=== PATIENT | male | born 1965 | race Caucasian/White ===

== ENCOUNTER 2016-03-18 16:57 | Inpatient (IN) | payer BC, OTHER ==
[2016-03-18] VITALS (7 sets, daily range): BP systolic 103–115; BP diastolic 66–74; PULSE 60–74; RESP 16–18; TEMP 97.9–98.9; O2SAT 98–100
[~2016-03-18] VITALS: Ht 172.7 cm; Wt 85.0 kg
[2016-03-18] MEDS ORDERED: SODIUM CHLOR 0.9% 1000 ML INJ 1,000 ML IV SCH (18:33)
--- NOTE | 2016-03-18 18:43 | PD ---
HPI Chief Complaint: Abnormal Results Time Seen by Provider: 18:17 Travel History International Travel<30 days: No Contact w/Intl Traveler<30days: No Traveled to known affect area: No History of Present Illness HPI 81-year-old male complains generalized malaise and weakness, dark loose stool and shortness of breath. Patient states that the symptoms started a week ago. Patient denies any headache. Patient denies any chest pain. Patient denies any coughing congestion. Patient denies abdominal pain. Patient denies any dysuria or frequency. Patient denies any fever chills. Patient denies any back pain. Patient does not have a local family physician. Patient was seen at local walk-in clinic 2 days ago and had blood tests done. Results Back today which shows hemoglobin of 5.7 hematocrit 17.8. TSH above 150. Patient was advised to go to ED for evaluation. Patient denies any past medical problem. Patient is not on any routine medication. Patient denies any routine intake of aspirin or NSAIDs. Patient denies any history GI bleed. Patient never had upper GI studies or colonoscopy. PFSH Past Medical History Medical History: Denies Significant Hx Diminished Hearing: No Tetanus Vaccination: Unknown Past Surgical History Other Surgery: Yes (ANKLE AND HAND SX) Social History Alcohol Use: Yes (SOC) Tobacco Use: No Substance Use: No Allergies-Medications (Allergen,Severity, Reaction): Coded Allergies: No Known Allergies (Unverified , 03/18/16) Reported Meds & Prescriptions Reported Meds & Active Scripts Active No Active Prescriptions or Reported Medications Review of Systems General / Constitutional: No: Fever Eyes: No: Visual changes HENT: No: Headaches Cardiovascular: No: Chest Pain or Discomfort Respiratory: No: Shortness of Breath Gastrointestinal: Positive: Hematochezia, No: Abdominal Pain Genitourinary: No: Dysuria Musculoskeletal: No: Pain Skin: No Rash Neurologic: No: Weakness Psychiatric: No: Depression Endocrine: No: Polydipsia Hematologic/Lymphatic: No: Easy Bruising Physical Exam Narrative GENERAL: Well-nourished, well-developed patient. SKIN: Warm and dry. Patient is pale HEAD: Normocephalic. EYES: No scleral icterus. No injection or drainage. NECK: Supple, trachea midline. No JVD or lymphadenopathy. CARDIOVASCULAR: Regular rate and rhythm without murmurs, gallops, or rubs. RESPIRATORY: Breath sounds equal bilaterally. No accessory muscle use. GASTROINTESTINAL: Abdomen soft, non-tender, nondistended. Rectal exam Hemoccult positive. MUSCULOSKELETAL: No cyanosis, or edema. BACK: Nontender without obvious deformity. No CVA tenderness. Neurologic exam normal. Data Data Last Documented VS Vital Signs Date Time Temp Pulse Resp B/P Pulse Ox O2 Delivery O2 Flow Rate FiO2 03/18/16 18:16 16 100 Room Air 03/18/16 17:21 98.9 72 115/73 Orders Electrocardiogram (03/18/16 18:26) Complete Blood Count With Diff (03/18/16 18:26) Comprehensive Metabolic Panel (03/18/16 18:26) Prothrombin Time / Inr (Pt) (03/18/16 18:26) Act Partial Throm Time (Ptt) (03/18/16 18:26) Thyroid Stimulating Hormone (03/18/16 18:26) Chest, Single Ap (03/18/16 18:26) Iv Access Insert/Monitor (03/18/16 18:26) Ecg Monitoring (03/18/16 18:26) Oximetry (03/18/16 18:26) Type And Screen (03/18/16 18:26) Ct Abd/Pel W Iv Contrast(Rout) (03/18/16 18:26) Urinalysis - C+S If Indicated (03/18/16 18:33) Red Blood Cells (Rbc) (03/18/16 18:33) Blood Product Administration .UPON TRANSFUSION (03/18/16 18:33) Ondansetron Inj (Zofran Inj) (03/18/16 18:45) Sodium Chlor 0.9% 1000 Ml Inj (Ns 1000 M (03/18/16 18:33) Protonix Bolus 80 Mg X 1 (03/18/16 18:45) Protonix Drip 8ommg/Hr (03/18/16 18:45) Furosemide Inj (Lasix Inj) (03/18/16 18:45) MDM Medical Decision Making Medical Screen Exam Complete: Yes Emergency Medical Condition: Yes Differential Diagnosis Differential diagnosis including GI bleed, anemia, hypothyroidism Narrative Course 51-year-old male with generalized malaise and weakness and dark loose stool. Outpatient lab results show anemia and hypothyroidism. Examination shows Hemoccult-positive stool. Normal saline solution 1 25 cc an hour. Protonix bolus and drip started. Scripts No Active Prescriptions or Reported Meds Franky Moore MD Mar 18, 2016 18:43
[2016-03-18] MEDS ORDERED: PANTOPRAZOLE INJ 80 MG in SODIUM CHLORIDE 0.9% INJ 35 ML IV ONE (18:45)
[2016-03-18] MEDS ORDERED: ONDANSETRON HCL 4 MG/2 ML VIAL IVP ONE (18:45)
[2016-03-18] MEDS ORDERED: FUROSEMIDE 20 MG/2 ML VIAL IV PUSH ONE (18:45)
[2016-03-18 18:51] LABS: AUTOMATED NEUTROPHIL # 2.9 TH/MM3 (1.8-7.7); BASOPHIL % 0.4 % (0.0-2.0); EOSINOPHIL % 1.2 % (0.0-4.0); LYMPH % 22.9 % (9.0-44.0); MEAN CELL VOLUME 98.5 FL (80.0-100.0); MEAN CORPUSCULAR HEMOGLOBIN 32.1 PG (27.0-34.0); MEAN CORPUSCULAR HGB CONC 32.6 % (32.0-36.0); MONO % 7.7 % (0.0-8.0); NEUT % 67.8 % (16.0-70.0); PLATELET COUNT 223 TH/MM3 (150-450); RED BLOOD COUNT 1.83 MIL/MM3 (4.50-5.90); RED CELL DISTRIBUTION WIDTH 19.2 % (11.6-17.2); WHITE BLOOD COUNT 4.2 TH/MM3 (4.0-11.0)
[2016-03-18 18:55] LABS: HEMO FLAGS DIFF FINAL
[2016-03-18 18:57] LABS: CHLORIDE 101 MEQ/L (98-107); POTASSIUM 3.9 MEQ/L (3.5-5.1); SODIUM (NA) 137 MEQ/L (136-145)
--- NOTE | 2016-03-18 18:57 | RADHPO ---
EXAM DATE/TIME: 03/18/2016 18:47 [facility] COMPARISON: No previous studies available for comparison. INDICATIONS : Shortness of breath. MEDICAL HISTORY : None. SURGICAL HISTORY : None. ENCOUNTER: Initial ACUITY: 1 day PAIN SCORE: 0/10 LOCATION: Bilateral chest FINDINGS: Lungs are clear. No pleural effusion is identified. The cardiomediastinal contours are satisfactory. CONCLUSION: No acute disease. Toby García MD on March 18, 2016 at 18:55 Board Certified Radiologist. This report was verified electronically.
[2016-03-18 19:01] LABS: ANION GAP 8 MEQ/L (5-15); BICARBONATE 28.3 MEQ/L (21.0-32.0); BLOOD UREA NITROGEN 11 MG/DL (7-18)
[2016-03-18 19:03] LABS: APTT (PATIENT) 27.6 SEC (24.3-30.1); PROTHROMBIN TIME - PATIENT 10.7 SEC (9.8-11.6)
[2016-03-18 19:04] LABS: ALT (GPT) 100 U/L (12-78); AST (GOT) 151 U/L (15-37); GLOMERULAR FILTRATION RATE 49 ML/MIN (>89)
[2016-03-18 19:05] LABS: TOTAL BILIRUBIN ADULT 0.7 MG/DL (0.2-1.0)
[2016-03-18 19:07] LABS: ALKALINE PHOSPHATASE 40 U/L (45-117)
--- NOTE | 2016-03-18 19:52 | PD ---
Physical Exam Time Seen by Provider: 19:[address] Moore with this patient with me to check results of lab work and admit the patient for anemia, GI bleed and hypothyroidism. Data Data Last Documented VS Vital Signs Date Time Temp Pulse Resp B/P Pulse Ox O2 Delivery O2 Flow Rate FiO2 03/18/16 19:08 Room Air 03/18/16 19:07 74 18 113/72 98 03/18/16 17:21 98.9 Orders Electrocardiogram (03/18/16 18:26) Complete Blood Count With Diff (03/18/16 18:26) Comprehensive Metabolic Panel (03/18/16 18:26) Prothrombin Time / Inr (Pt) (03/18/16 18:26) Act Partial Throm Time (Ptt) (03/18/16 18:26) Thyroid Stimulating Hormone (03/18/16 18:26) Chest, Single Ap (03/18/16 18:26) Iv Access Insert/Monitor (03/18/16 18:26) Ecg Monitoring (03/18/16 18:26) Oximetry (03/18/16 18:26) Type And Screen (03/18/16 18:26) Ct Abd/Pel W Iv Contrast(Rout) (03/18/16 18:26) Urinalysis - C+S If Indicated (03/18/16 18:33) Red Blood Cells (Rbc) (03/18/16 18:33) Blood Product Administration .UPON TRANSFUSION (03/18/16 18:33) Ondansetron Inj (Zofran Inj) (03/18/16 18:45) Sodium Chlor 0.9% 1000 Ml Inj (Ns 1000 M (03/18/16 18:33) Pantoprazole Inj (Protonix Inj) (03/18/16 18:45) Pantoprazole Inj (Protonix Inj) (03/18/16 18:45) Furosemide Inj (Lasix Inj) (03/18/16 18:45) Labs Laboratory Tests Test 03/18/16 18:43 White Blood Count 4.2 TH/MM3 Red Blood Count 1.83 MIL/MM3 Hemoglobin 5.9 GM/DL Hematocrit 18.0 % Mean Corpuscular Volume 98.5 FL Mean Corpuscular Hemoglobin 32.1 PG Mean Corpuscular Hemoglobin 32.6 % Concent Red Cell Distribution Width 19.2 % Platelet Count 223 TH/MM3 Mean Platelet Volume 6.5 FL Neutrophils (%) (Auto) 67.8 % Lymphocytes (%) (Auto) 22.9 % Monocytes (%) (Auto) 7.7 % Eosinophils (%) (Auto) 1.2 % Basophils (%) (Auto) 0.4 % Neutrophils # (Auto) 2.9 TH/MM3 Lymphocytes # (Auto) 1.0 TH/MM3 Monocytes # (Auto) 0.3 TH/MM3 Eosinophils # (Auto) 0.0 TH/MM3 Basophils # (Auto) 0.0 TH/MM3 CBC Comment DIFF FINAL Differential Comment Prothrombin Time 10.7 SEC Prothromb Time International 1.0 RATIO Ratio Activated Partial 27.6 SEC Thromboplast Time Sodium Level 137 MEQ/L Potassium Level 3.9 MEQ/L Chloride Level 101 MEQ/L Carbon Dioxide Level 28.3 MEQ/L Anion Gap 8 MEQ/L Blood Urea Nitrogen 11 MG/DL Creatinine 1.50 MG/DL Estimat Glomerular Filtration 49 ML/MIN Rate Random Glucose 89 MG/DL Calcium Level 8.8 MG/DL Total Bilirubin 0.7 MG/DL Aspartate Amino Transf 151 U/L (AST/SGOT) Alanine Aminotransferase 100 U/L (ALT/SGPT) Alkaline Phosphatase 40 U/L Total Protein 6.4 GM/DL Albumin 3.6 GM/DL Thyroid Stimulating Hormone GREATER THAN 3rd Gen 100.000 uIU/ML [facility] Medical Record Reviewed: Yes Supervised Visit with SAEED: Yes Interpretation(s) The EKG shows sinus rhythm with a rate of [address] elevation or depression. The chest x-ray shows no acute disease. The CBC shows a hemoglobin of 5.9 and hematocrit of 18 but is otherwise unremarkable. The complete metabolic profile shows creatinine of 1.5, GFR 49, AST of 151, ALT of 100 but is otherwise normal. The TSH is greater than 100,000. The ProTime is 10.7, INR 1.0 and a repeat PT is 27.6. Differential Diagnosis Anemia, GI bleed, coagulopathy, bleeding ulcer, electrolyte disorder, renal insufficiency, hypothyroid, intestinal mass Narrative Course The patient has a significant anemia and is still guaiac positive in his stool. The TSH indicates hypothyroid. He does not have a coagulopathy. He has no abdominal pain. Scripts No Active Prescriptions or Reported Meds Khanh Adamson MD Mar 18, 2016 19:52
[2016-03-18] MEDS ORDERED: IOHEXOL 350 MG/ML 10 ML VIAL (for RAD DIAG) IV ONE (19:55)
[2016-03-18] MEDS ORDERED: ONDANSETRON HCL 4 MG/2 ML VIAL IVP PRN (20:15)
[2016-03-18] MEDS ORDERED: NALOXONE HCL 0.4 MG/ML AMP IV PRN (20:15)
[2016-03-18] MEDS ORDERED: SODIUM CHLORIDE 0.9% FLUSH 5 ML FLUSH FLUSH PRN (20:15)
[2016-03-18 20:29] LABS: BLOOD, URINE NEG (NEG); GLUCOSE,URINE NEG (NEG); KETONE, URINE NEG (NEG); NITRITE,URINE NEG (NEG); PH, URINE 6.5 (5.0-8.5)
[2016-03-18 20:38] LABS: COMMENT (UR) CULT NOT INDICATED; CULTURE IF INDICATED CULT NOT INDICATED; RBC, URINE 0-2 /hpf (0-3); SQUAMOUS EPITHELIAL CELL URINE 0-5 /hpf (0-5); URINE COLOR STRAW (YELLW/STRAW); WBC, URINE 0-2 /hpf (0-5)
[2016-03-18] MEDS: SODIUM CHLORIDE 0.9% FLUSH 5 ML FLUSH FLUSH SCH (20:38)
[2016-03-18] MEDS: PANTOPRAZOLE INJ 80 MG in SODIUM CHLORIDE 0.9% INJ 100 ML IV SCH (20:38)
--- NOTE | 2016-03-18 20:48 | RADHPO ---
EXAM DATE/TIME: 03/18/2016 19:37 [facility] COMPARISON: No previous studies available for comparison. INDICATIONS : Weakness. Blood in stool. IV CONTRAST: 75 cc Omnipaque 350 (iohexol) IV ORAL CONTRAST: No oral contrast ingested. RADIATION DOSE: 12.10 CTDIvol (mGy) MEDICAL HISTORY : None SURGICAL HISTORY : None. ENCOUNTER: Initial ACUITY: 1 week PAIN SCALE: 0/10 LOCATION: Abdomen and pelvis. TECHNIQUE: Volumetric scanning of the abdomen and pelvis was performed. Using automated exposure control and ad justment of the mA and/or kV according to patient size, radiation dose was kept as low as reasonably achievable to obtain optimal diagnostic quality images. FINDINGS: LOWER LUNGS: The visualized lower lungs are clear. LIVER: There is a tiny cyst in the left lobe. No suspicious mass or biliary ductal dilatation. Gallbladder i s abnormal containing numerous stones and with mild diffuse wall thickening. SPLEEN: Normal size without lesion. PANCREAS: Within normal limits. KIDNEYS: Normal in size and shape. There is no mass, stone or hydronephrosis. ADRENAL GLANDS: Within normal limits. VASCULAR: There is no aortic aneurysm. BOWEL/MESENTERY: The stomach, small bowel, and colon demonstrate no acute abnormality. There is no free intraperitone al air or fluid. ABDOMINAL WALL: Within normal limits. RETROPERITONEUM: There is no lymphadenopathy. BLADDER: No wall thickening or mass. REPRODUCTIVE: Within normal limits. INGUINAL: There is no lymphadenopathy or hernia. MUSCULOSKELETAL: Within normal limits for patient age. CONCLUSION: Thickwalled gallbladder containing numerous stones. Otherwise unremarkable CT appearance of the abdom en and pelvis. Toby García MD on March 18, 2016 at 20:43 Board Certified Radiologist. This report was verified electronically.
[2016-03-19] VITALS (15 sets, daily range): BP systolic 99–118; BP diastolic 51–75; PULSE 51–68; RESP 12–21; TEMP 95.9–98.8; O2SAT 96–100
--- NOTE | 2016-03-19 04:45 | HHI.HP ---
[facility] Primary Care Physician No Primary Care Physician Admission Diagnosis anemia, GI bleed, hypothyroid Diagnoses: (1) Anemia (2) GI bleed (3) Hypothyroidism (4) Transaminitis Chief Complaint: fatigue, dark stool, shortness of breath Travel History International Travel<30 Days: No Contact w/Intl Traveler <30 Da: No Traveled to Known Affected Are: No History of Present Illness Mr. Jordan is a 51 year-old male who denies any significant past medical history and presented to the emergency room on 03/18/16 with complaints of generalized malaise, fatigue, weakness and dark loose stool accompanied by shortness of breath. The patient was found to have a hemoglobin of 5.9 in the emergency room as well as TSH of greater than 100, elevated transaminases with AST 151, ALT 100 and acute renal failure with estimated GFR of 49 and creatinine of 1.50. He is seen in the emergency room. He reports that he has been experiencing severe fatigue with shortness of breath and lightheadedness accompanied by any dark stools occurring once a day for the past 3 days. He denies any abdominal pain, chest pain, palpitations, syncope, or hematuria. Denies any NSAID use and states he's only been using [employer] products - protein shakes and vitamin energy drinks. He denies any history of diabetes mellitus, hypertension, heart problems, breathing problems, liver or kidney problems, clotting disorders such as DVT, PE, CVA, denies thyroid dysfunction, seizure disorders, or cancer. . Review of Systems Constitutional: DENIES: Fever, Chills Endocrine: COMPLAINS OF: Heat/cold intolerance (cold) Respiratory: COMPLAINS OF: Shortness of breath, DENIES: Cough Cardiovascular: DENIES: Chest pain, Syncope Gastrointestinal: COMPLAINS OF: Black stools, DENIES: Abdominal pain, Bloody stools Genitourinary: DENIES: Hematuria, Dysuria Neurologic: DENIES: Localized weakness (generalized weakness), Seizures Other 10 point system review performed and other than what is mentioned in history of present illness and above, review is negative Past Family Social History Past Medical History Denies any health problems . Past Surgical History Ankle and hand surgery . Reported Medications Reported Meds & Active Scripts Active No Active Prescriptions or Reported Medications Allergies: Coded Allergies: No Known Allergies (Unverified , 03/18/16) Active Ordered Medications Current Medications Ondansetron HCl 4 mg 4 mg ONCE ONCE IVP Last administered on 03/18/16 18:50; Start 03/18/16 at 18:45; Stop 03/18/16 at 18:46; Status DC Sodium Chloride 1,000 ml @ 125 mls/hr Q8H IV Last administered on 03/18/16 18 :49; Start 03/18/16 at 18:33; Stop 03/19/16 at 02:32; Status DC Pantoprazole Sodium 80 mg/ Sodium Chloride 35 ml @ 420 mls/hr ONCE ONCE IV Last administered on 03/18/16 20:37; Start 03/18/16 at 18:45; Stop 03/18/16 at 18:49; Status DC Pantoprazole Sodium/Sodium Chloride (Protonix Inj/NS Inj) 100 ml @ 10 mls/hr Q10H IV Last administered on 03/18/16 20:38; Start 03/18/16 at 18:45 Furosemide (Lasix Inj) 20 mg ONCE ONCE IV PUSH Last administered on 03/18/16 20:20; Start 03/18/16 at 18:45; Stop 03/18/16 at 18:46; Status DC Iohexol (Omnipaque 350 Inj) 75 ml STK-MED ONCE IV Last administered on 19:55; Start 03/18/16 at 19:55; Stop 03/18/16 at 19:56; Status DC IV Flush (NS Flush) 2 ml UNSCH PRN FLUSH FLUSH AFTER USING IV ACCESS; Start at 20:15 IV Flush (NS Flush) 2 ml BID FLUSH ; Start 03/18/16 at 21:00 Ondansetron HCl (Zofran Inj) 4 mg Q6H PRN IVP NAUSEA OR VOMITING; Start at 20:15 Naloxone HCl (Narcan Inj) 0.4 mg UNSCH PRN IV SEE LABEL COMMENTS; Start at 20:15 . Family History Father with pancreatic CA, age 69 y/o . Social History Tobacco: none Social: weekends, social Physical Exam Vital Signs Vital Signs Date Time Temp Pulse Resp B/P Pulse Ox O2 Delivery O2 Flow Rate FiO2 03/19/16 04:31 97.1 55 12 107/71 100 03/19/16 04:15 97.1 56 12 108/69 100 03/19/16 04:00 96.0 55 12 115/75 100 03/19/16 03:30 95.9 56 12 113/75 100 03/19/16 02:30 62 03/19/16 01:32 97.1 57 12 99/67 99 03/19/16 01:16 97.1 54 12 105/67 100 03/19/16 01:01 97.3 55 12 100/71 99 03/19/16 00:22 98.8 54 18 112/71 97 03/18/16 23:51 62 18 99 03/18/16 23:36 98.5 60 18 107/67 99 Room Air 03/18/16 23:01 97.9 62 18 105/74 99 Room Air 03/18/16 22:45 98.1 62 18 103/66 100 Room Air 03/18/16 22:45 98.1 62 18 103/66 100 Room Air 03/18/16 20:50 70 18 107/70 98 Room Air 03/18/16 19:08 Room Air 03/18/16 19:07 74 18 113/72 98 Room Air 03/18/16 19:04 99 03/18/16 18:16 16 100 Room Air 03/18/16 17:21 98.9 72 16 115/73 100 Physical Exam GENERAL: This is a pale male patient, in no apparent distress. SKIN: No rashes, ecchymoses or lesions. Cool and dry. HEAD: Atraumatic. Normocephalic. EYES: No scleral icterus. No injection or drainage. ENT: Nose without bleeding, purulent drainage. NECK: Trachea midline. No JVD or lymphadenopathy. CARDIOVASCULAR: Regular rate and rhythm without murmurs, gallops, or rubs. RESPIRATORY: Clear to auscultation. Breath sounds equal bilaterally. No wheezes , rales, or rhonchi. GASTROINTESTINAL: Abdomen soft, non-tender, nondistended. No guarding. MUSCULOSKELETAL: Extremities without clubbing, cyanosis, or edema. No calf tenderness. NEUROLOGICAL: Awake and alert. Motor and sensory grossly within normal limits. Normal speech. . Laboratory Laboratory Tests Test 03/18/16 03/18/16 03/18/16 03/18/16 18:26 18:43 19:11 20:10 Blood Type O POSITIVE O POSITIVE Antibody Screen NEGATIVE White Blood Count 4.2 Red Blood Count 1.83 Hemoglobin 5.9 Hematocrit 18.0 Mean Corpuscular Volume 98.5 Mean Corpuscular Hemoglobin 32.1 Mean Corpuscular Hemoglobin 32.6 Concent Red Cell Distribution Width 19.2 Platelet Count 223 Mean Platelet Volume 6.5 Neutrophils (%) (Auto) 67.8 Lymphocytes (%) (Auto) 22.9 Monocytes (%) (Auto) 7.7 Eosinophils (%) (Auto) 1.2 Basophils (%) (Auto) 0.4 Neutrophils # (Auto) 2.9 Lymphocytes # (Auto) 1.0 Monocytes # (Auto) 0.3 Eosinophils # (Auto) 0.0 Basophils # (Auto) 0.0 CBC Comment DIFF FINAL Differential Comment Prothrombin Time 10.7 Prothromb Time International 1.0 Ratio Activated Partial 27.6 Thromboplast Time Sodium Level 137 Potassium Level 3.9 Chloride Level 101 Carbon Dioxide Level 28.3 Anion Gap 8 Blood Urea Nitrogen 11 Creatinine 1.50 Estimat Glomerular Filtration 49 Rate Random Glucose 89 Calcium Level 8.8 Total Bilirubin 0.7 Aspartate Amino Transf 151 (AST/SGOT) Alanine Aminotransferase 100 (ALT/SGPT) Alkaline Phosphatase 40 Total Protein 6.4 Albumin 3.6 Free Thyroxine 0.17 Thyroid Stimulating Hormone GREATER THAN 3rd Gen 100.000 Crossmatch Leukocyte-Reduced Red Blood Cells Blood Bank Comment Urine Color STRAW Urine Turbidity CLEAR Urine pH 6.5 Urine Specific [place] 1.014 Urine Protein NEG Urine Glucose (UA) NEG Urine Ketones NEG Urine Occult Blood NEG Urine Nitrite NEG Urine Bilirubin NEG Urine Leukocyte Esterase NEG Urine RBC 0-2 Urine WBC 0-2 Urine Squamous Epithelial 0-5 Cells Urine Bacteria NONE Microscopic Urinalysis Comment CULT NOT INDICATED Test 03/18/16 20:40 Total Triiodothyronine 17 Result Diagram: 03/18/16 1843 03/18/16 1843 Imaging Last Impressions Chest X-Ray 03/18/16 1826 Signed Impressions: Service Date/Time: February 18:47 - CONCLUSION: No acute disease. Toby García MD Abdomen/Pelvis CT 03/18/16 1826 Signed Impressions: Service Date/Time: February 19:37 - CONCLUSION: Thickwalled gallbladder containing numerous stones. Otherwise unremarkable CT appearance of the abdomen and pelvis. Toby García MD . Assessment and Plan Problem List: (1) Anemia ICD Code: D64.9 Status: Acute (2) GI bleed ICD Code: K92.2 Status: Acute (3) Hypothyroidism ICD Code: E03.9 Status: Acute (4) Transaminitis ICD Code: R74.0 Status: Acute Assessment and Plan Mr. Jordan is a 51 year-old male who denies any significant past medical history and presented to the emergency room with complaints of generalized malaise, fatigue, weakness and dark loose stool accompanied by shortness of breath. GI bleed Severe anemia - Stool positive for occult blood in the ER - H&H 5.9 and 18.0 respectively, RBCs 1.83 - Consult Gastroenterology - Protonix drip - Blood transfused in the ER - Recheck CBC - Transfuse to maintain Hgb > 7 - Continuous cardiac telemetry; high risk for cardiac arrhythmias Severe hypothyroidism - TSH- greater than 100.000 - Free T4- 0.17 - Free T3- 17 - Start Synthroid 50 mcg p.o. qday; recheck TFTs in 6 - 8 weeks - Education provided regarding Synthroid; need to take on empty stomach with water only, do not take with other meds, will need lab testing as an outpatient to achieve adequate dosing Acute kidney injury- suspect prerenal related to severe anemia - Creatinine 1.50, estimated GFR 49, BUN 11 - Avoid nephrotoxins - Recheck BMP in a.m. and follow trends in renal indices Transaminitis - AST 151 and ALT 100 - Recheck in a.m. and follow trends DVT prophylaxis - SCDs - Chemotherapy prophylaxis contraindicated due to GI bleed and severe anemia Written by Juli Louis, acting as scribe for Dr. Pedraza on 03/19/16 at 04:40. .All or portions of this note were transcribed by scribe [Juli Louis]. I, Dr. Daniela Pedraza personally performed the history, physical exam, and medical decision making; and confirmed the accuracy of the information in the transcribed note. Authenticated by Dr. Daniela Pedraza on 03/19/16 at 0440 Discussed Condition With ER physician and patient Physician Certification 2 Midnight Certification Type: Admission for Inpatient Services Order for Inpatient Services The services are ordered in accordance with Medicare regulations or non- Medicare payer requirements, as applicable. In the case of services not specified as inpatient-only, they are appropriately provided as inpatient services in accordance with the 2-midnight benchmark. Estimated LOS (days): 3 days is the estimated time the patient will need to remain in the hospital, assuming treatment plan goals are met and no additional complications. Post-Hospital Plan: Not yet determined Juli Louis Mar 19, 2016 04:45 Daniela Pedraza MD Apr 28, 2016 08:00
[2016-03-19] MEDS: PANTOPRAZOLE INJ 80 MG in SODIUM CHLORIDE 0.9% INJ 100 ML IV SCH ×4 (05:30→23:20)
[2016-03-19] MEDS: LEVOTHYROXINE SODIUM 50 MCG TAB PO SCH (05:34)
[2016-03-19] MEDS: SODIUM CHLOR 0.9% 1000 ML INJ 1,000 ML IV SCH ×4 (07:30→23:20)
[2016-03-19 08:52] LABS: AUTOMATED NEUTROPHIL # 2.4 TH/MM3 (1.8-7.7); BASOPHIL % 0.7 % (0.0-2.0); EOSINOPHIL % 1.1 % (0.0-4.0); HEMATOCRIT 29.3 % (39.0-51.0); HEMO FLAGS DIFF FINAL; LYMPH % 18.4 % (9.0-44.0); LYMPHOCYTE # 0.6 TH/MM3 (1.0-4.8); MEAN CELL VOLUME 90.5 FL (80.0-100.0); MEAN CORPUSCULAR HEMOGLOBIN 31.5 PG (27.0-34.0); MEAN CORPUSCULAR HGB CONC 34.8 % (32.0-36.0); MONO % 7.8 % (0.0-8.0); PLATELET COUNT 200 TH/MM3 (150-450); RED BLOOD COUNT 3.23 MIL/MM3 (4.50-5.90); RED CELL DISTRIBUTION WIDTH 16.3 % (11.6-17.2); WHITE BLOOD COUNT 3.3 TH/MM3 (4.0-11.0)
[2016-03-19] MEDS: SODIUM CHLORIDE 0.9% FLUSH 5 ML FLUSH FLUSH SCH ×2 (09:00→20:20)
--- NOTE | 2016-03-19 09:10 | PD.CONS ---
HPI History of Present Illness This is a 51 year old male patient who came to the ER for evaluation of generalized fatigue. He states this started a few weeks ago. He has been more tired than usual and having shortness of breath on exertion. He denies any chest pain. He did have improvement with rest. He states this has progressively been getting worse and therefore came to the ER for further evaluation, where he was noted to have an HH of 5.9/18.0. He denies any hx of anemia and has not seen any obvious blood loss. He denies any decreased appetite, weight loss, nausea, vomiting, heartburn, reflux, abdominal pain, or red blood in his stool. He has had dark tarry stools for about a week. He denies any hx of PUD. He occasionally takes NSAIDs for headaches but denies taking this on a regular basis. He reports that he drinks about 3-4 beers on Tuesday or Tuesday night. No family hx of esophageal, gastric, or colorectal cancer. He has never had an EGD/Colonoscopy. He denies any Mediterranean ancestry. (Maria T Coronado) PFS Past Medical History Denies any medical problems Past Surgical History Left ORIF Ankle Left hand surgery (Maria T Coronado) Coded Allergies: No Known Allergies (Unverified , 03/18/16) Medications Allergies Coded Allergies Type Severity Reaction Last Updated Verified No Known Allergies 03/18/16 No Active Scripts Medications Dose Route/Sig Days Date Category No Active Prescriptions or Reported Medications Rx Family History Father with pancreatic CA, age 69 y/o Social History No tobacco use. 3-4 beers on Fridays/Saturdays (MariaT Coronado) Review of Systems Constitutional: COMPLAINS OF: Fatigue, DENIES: Fever, Weight gain, Weight loss , Chills Respiratory: DENIES: Cough, Shortness of breath Cardiovascular: DENIES: Chest pain, Lower Extremity Edema Gastrointestinal: COMPLAINS OF: Black stools, DENIES: Abdominal pain, Bloody stools, Constipation, Diarrhea, Nausea, Vomiting, Anorexia, Heartburn, Hematemesis Musculoskeletal: COMPLAINS OF: Back pain, DENIES: Joint pain Integumentary: DENIES: Abnormal pigmentation Hematologic/lymphatic: DENIES: Bruising Neurologic: COMPLAINS OF: Headache Psychiatric: DENIES: Anxiety, Confusion (Maria T Coronado GI Exam Vitals I&O Vital Signs Date Time Temp Pulse Resp B/P Pulse Ox O2 Delivery O2 Flow Rate FiO2 03/19/16 07:57 56 18 115/73 96 03/19/16 07:00 96.9 58 12 115/71 99 03/19/16 04:58 98.8 51 21 106/51 97 03/19/16 04:31 97.1 55 12 107/71 100 03/19/16 04:15 97.1 56 12 108/69 100 03/19/16 04:00 96.0 55 12 115/75 100 03/19/16 03:30 95.9 56 12 113/75 100 03/19/16 02:30 62 03/19/16 01:32 97.1 57 12 99/67 99 03/19/16 01:16 97.1 54 12 105/67 100 03/19/16 01:01 97.3 55 12 100/71 99 03/19/16 00:22 98.8 54 18 112/71 97 03/18/16 23:51 62 18 99 03/18/16 23:36 98.5 60 18 107/67 99 Room Air 03/18/16 23:01 97.9 62 18 105/74 99 Room Air 03/18/16 22:45 98.1 62 18 103/66 100 Room Air 03/18/16 22:45 98.1 62 18 103/66 100 Room Air 03/18/16 20:50 70 18 107/70 98 Room Air 03/18/16 19:08 Room Air 03/18/16 19:07 74 18 113/72 98 Room Air 03/18/16 19:04 99 03/18/16 18:16 16 100 Room Air 03/18/16 17:21 98.9 72 16 115/73 100 I/O 03/18/16 03/18/16 03/18/16 03/19/16 03/19/16 03/19/16 07:00 15:00 23:00 07:00 15:00 23:00 Intake Total 250 ml Output Total 1200 ml Balance -950 ml Intake Packed Cells 250 ml Output Urine Total 1200 ml # Voids 3 Imaging Last Impressions Chest X-Ray 03/18/16 1826 Signed Impressions: Service Date/Time: February 18:47 - CONCLUSION: No acute disease. Toby García MD Abdomen/Pelvis CT 03/18/16 1826 Signed Impressions: Service Date/Time: February 19:37 - CONCLUSION: Thickwalled gallbladder containing numerous stones. Otherwise unremarkable CT appearance of the abdomen and pelvis. Toby García MD Laboratory Test 03/18/16 03/18/16 03/18/16 03/18/16 18:26 18:43 19:11 20:10 Blood Type O POSITIVE O POSITIVE Antibody Screen NEGATIVE White Blood Count 4.2 TH/MM3 Red Blood Count 1.83 MIL/MM3 Hemoglobin 5.9 GM/DL Hematocrit 18.0 % Mean Corpuscular Volume 98.5 FL Mean Corpuscular Hemoglobin 32.1 PG Mean Corpuscular Hemoglobin 32.6 % Concent Red Cell Distribution Width 19.2 % Platelet Count 223 TH/MM3 Mean Platelet Volume 6.5 FL Neutrophils (%) (Auto) 67.8 % Lymphocytes (%) (Auto) 22.9 % Monocytes (%) (Auto) 7.7 % Eosinophils (%) (Auto) 1.2 % Basophils (%) (Auto) 0.4 % Neutrophils # (Auto) 2.9 TH/MM3 Lymphocytes # (Auto) 1.0 TH/MM3 Monocytes # (Auto) 0.3 TH/MM3 Eosinophils # (Auto) 0.0 TH/MM3 Basophils # (Auto) 0.0 TH/MM3 CBC Comment DIFF FINAL Differential Comment Prothrombin Time 10.7 SEC Prothromb Time International 1.0 RATIO Ratio Activated Partial 27.6 SEC Thromboplast Time Sodium Level 137 MEQ/L Potassium Level 3.9 MEQ/L Chloride Level 101 MEQ/L Carbon Dioxide Level 28.3 MEQ/L Anion Gap 8 MEQ/L Blood Urea Nitrogen 11 MG/DL Creatinine 1.50 MG/DL Estimat Glomerular Filtration 49 ML/MIN Rate Random Glucose 89 MG/DL Calcium Level 8.8 MG/DL Total Bilirubin 0.7 MG/DL Aspartate Amino Transf 151 U/L (AST/SGOT) Alanine Aminotransferase 100 U/L (ALT/SGPT) Alkaline Phosphatase 40 U/L Total Protein 6.4 GM/DL Albumin 3.6 GM/DL Free Thyroxine 0.17 NG/DL Thyroid Stimulating Hormone GREATER THAN 3rd Gen 100.000 uIU/ML Crossmatch Leukocyte-Reduced Red Blood Cells Blood Bank Comment Urine Color STRAW Urine Turbidity CLEAR Urine pH 6.5 Urine Specific Freeman 1.014 Urine Protein NEG mg/dL Urine Glucose (UA) NEG mg/dL Urine Ketones NEG mg/dL Urine Occult Blood NEG Urine Nitrite NEG Urine Bilirubin NEG Urine Leukocyte Esterase NEG Urine RBC 0-2 /hpf Urine WBC 0-2 /hpf Urine Squamous Epithelial 0-5 /hpf Cells Urine Bacteria NONE /hpf Microscopic Urinalysis Comment CULT NOT INDICATED Test 03/18/16 03/19/16 20:40 08:31 Total Triiodothyronine 17 NG/DL White Blood Count 3.3 TH/MM3 Red Blood Count 3.23 MIL/MM3 Hemoglobin 10.2 GM/DL Hematocrit 29.3 % Mean Corpuscular Volume 90.5 FL Mean Corpuscular Hemoglobin 31.5 PG Mean Corpuscular Hemoglobin 34.8 % Concent Red Cell Distribution Width 16.3 % Platelet Count 200 TH/MM3 Mean Platelet Volume 7.1 FL Neutrophils (%) (Auto) 72.0 % Lymphocytes (%) (Auto) 18.4 % Monocytes (%) (Auto) 7.8 % Eosinophils (%) (Auto) 1.1 % Basophils (%) (Auto) 0.7 % Neutrophils # (Auto) 2.4 TH/MM3 Lymphocytes # (Auto) 0.6 TH/MM3 Monocytes # (Auto) 0.3 TH/MM3 Eosinophils # (Auto) 0.0 TH/MM3 Basophils # (Auto) 0.0 TH/MM3 CBC Comment DIFF FINAL Differential Comment Physical Examination HEENT: Normocephalic; atraumatic; no jaundice. CHEST: CTA CARDIAC: RRR. ABDOMEN: Soft, nondistended, nontender; no hepatosplenomegaly; bowel sounds are present in all four quadrants. EXTREMITIES: No clubbing, cyanosis, or edema. SKIN: Normal; no rash; no jaundice. WOOL PULLER: No focal deficits; alert and oriented times three. (Maria T Coronado) Assessment and Plan Plan ASSESSMENT: - GIB, Dark stool. Denies any hx of PUD. Occasional NSAID use, social drinker. Fatigue for a few weeks, gradually worsening. Came to ER for worsening symptoms and found to have severe anemia with HH 5.9/18.0. S/P 3 units of PRBC. Rpt. HH 10.2/29.3. NPO. Protonix gtt. - Severe anemia. Denies Mediterranean ancestry. HH 5.9/18.0. S/P 3 units of PRBC. Rpt. HH 10.2/29.3. No egd/colonoscopy. NPO. Protonix gtt. - Elevated LFTs. T. 1.4, AST 119, ALK phosph 38, Alk Phosph 38. Denies any hx of liver dz. Drinks about 3-4 beers on Tuesday or Tuesday night. - Elevated TSH. Pr primary PLAN: - Plan for egd - Obtain consents - NPO - Protonix Gtt - Monitor HH - Transfuse as necessary - Celiac panel - Hepatitis panel - AFP - PAXTON, ASMA, AMA - Ferritin, Iron saturation - Ceruloplasmin, Alpha 1 Antitrypsin - Supportive care - Further recommendations to follow based on results of above - Pt seen and examined by Dr. Gregory and myself and this note is written on her behalf (Maria T Coronado) Physician Comments seen, examined agree with above (Mitra Gregory MD) Maria T Coronado Mar 19, 2016 09:10 Mitra Gregory MD Mar 19, 2016 16:14
[2016-03-19 09:15] LABS: ALKALINE PHOSPHATASE 38 U/L (45-117); ALT (GPT) 91 U/L (12-78); ANION GAP 7 MEQ/L (5-15); AST (GOT) 119 U/L (15-37); BICARBONATE 27.7 MEQ/L (21.0-32.0); BLOOD UREA NITROGEN 10 MG/DL (7-18); CHLORIDE 101 MEQ/L (98-107); GLOMERULAR FILTRATION RATE 49 ML/MIN (>89); POTASSIUM 3.6 MEQ/L (3.5-5.1); SODIUM (NA) 136 MEQ/L (136-145); TOTAL BILIRUBIN ADULT 1.4 MG/DL (0.2-1.0)
[2016-03-19] MEDS ORDERED: PROPOFOL 200 MG/20 ML AMP IV ONE (12:10)
[2016-03-19] MEDS ORDERED: PEG (High)/E-LYTE SOLN 4000 ML BTL PO ONE (12:30)
--- NOTE | 2016-03-19 13:59 | HHI.PR ---
Subjective Remarks Follow-up for anemia and GI bleeding. The patient is seen after EGD today. He has no acute complaints at this time. He still complains of tiredness and fatigue, but states that has improved some since transfusion. He denies any chest pain, shortness breath, abdominal pain. No further loose stools since admission. Tolerating clear liquids. Going for colonoscopy tomorrow. Objective Vitals Vital Signs Date Time Temp Pulse Resp B/P Pulse Ox O2 Delivery O2 Flow Rate FiO2 03/19/16 11:30 96.9 56 18 115/73 96 03/19/16 07:57 56 18 115/73 96 03/19/16 07:00 96.9 58 12 115/71 99 03/19/16 04:58 98.8 51 21 106/51 97 03/19/16 04:31 97.1 55 12 107/71 100 03/19/16 04:15 97.1 56 12 108/69 100 03/19/16 04:00 96.0 55 12 115/75 100 03/19/16 03:30 95.9 56 12 113/75 100 03/19/16 02:30 62 03/19/16 01:32 97.1 57 12 99/67 99 03/19/16 01:16 97.1 54 12 105/67 100 03/19/16 01:01 97.3 55 12 100/71 99 03/19/16 00:22 98.8 54 18 112/71 97 03/18/16 23:51 62 18 99 03/18/16 23:36 98.5 60 18 107/67 99 Room Air 03/18/16 23:01 97.9 62 18 105/74 99 Room Air 03/18/16 22:45 98.1 62 18 103/66 100 Room Air 03/18/16 22:45 98.1 62 18 103/66 100 Room Air 03/18/16 20:50 70 18 107/70 98 Room Air 03/18/16 19:08 Room Air 03/18/16 19:07 74 18 113/72 98 Room Air 03/18/16 19:04 99 03/18/16 18:16 16 100 Room Air 03/18/16 17:21 98.9 72 16 115/73 100 I/O 03/18/16 03/18/16 03/18/16 03/19/1617 1/27/17 07:00 15:00 23:00 07:00 15:00 23:00 Intake Total 250 ml Output Total 1200 ml 500 ml Balance -950 ml -500 ml Intake Packed Cells 250 ml Output Urine Total 1200 ml 500 ml # Voids 3 Result Diagram: 03/19/16 0831 03/19/16 0831 Imaging Last Impressions Chest X-Ray 03/18/161825 Signed Impressions: Service Date/Time: February 18:47 - CONCLUSION: No acute disease. Toby García MD Abdomen/Pelvis CT 03/18/161825 Signed Impressions: Service Date/Time: February 19:37 - CONCLUSION: Thickwalled gallbladder containing numerous stones. Otherwise unremarkable CT appearance of the abdomen and pelvis. Toby García MD Objective Remarks GENERAL: Well-developed well-nourished. In no acute distress. SKIN: Warm and dry. No lesions noted. HEENT: Normocephalic. Pupils equal and round. Mucous membranes pink and moist. CARDIOVASCULAR: Regular rate and rhythm. No murmur appreciated. RESPIRATORY: No accessory muscle use. Clear to auscultation. Breath sounds equal bilaterally. GASTROINTESTINAL: Abdomen soft, non-tender, nondistended. Bowel sounds x4. MUSCULOSKELETAL: No obvious deformities. No clubbing or cyanosis. No edema. NEUROLOGICAL: Awake and alert. No focal neurological deficits. Moves upper and lower extremities spontaneously. Normal speech. PSYCHIATRIC: Appropriate mood and affect; insight and judgment normal. A/P Problem List: (1) Anemia ICD Code: D64.9 Status: Acute (2) GI bleed ICD Code: K92.2 Status: Acute (3) Hypothyroidism ICD Code: E03.9 Status: Acute (4) Transaminitis ICD Code: R74.0 Status: Acute Assessment and Plan Mr. Jordan is a 51 year-old male who denies any significant past medical history and presented to the emergency room with complaints of generalized malaise, fatigue, weakness and dark loose stool accompanied by shortness of breath. GI bleed Acute blood loss anemia Stool positive for occult blood in the ER. H&H 5.9 and 18.0 respectively, RBCs 1.83, s/p 3u PRBCs. EGD performed, showed gastritis. - Gastroenterology on board, planning for colonoscopy - Protonix drip - Monitor CBC - Transfuse to maintain Hgb > 7 - Continuous cardiac telemetry Severe hypothyroidism TSH- greater than 100.000, Free T4- 0.17, Free T3- 17 - Started on Synthroid 50 mcg p.o. qday - Recheck TFTs in 6 - 8 weeks. Will need lab testing as an outpatient to achieve adequate dosing Acute kidney injury Creatinine 1.5, no previous labs are comparisons - IVF - Recheck BMP in a.m. and follow trends in renal indices Transaminitis Elevated AST and ALT - GI consulted as above, workup in progress DVT prophylaxis - SCDs - Chemoprophylaxis contraindicated due to GI bleed and severe anemia Discharge Planning Disposition pending clinical course George Saunders Mar 19, 2016 13:59 Radha Storm MD Mar 19, 2016 19:36
[2016-03-19 15:45] LABS: FERRITIN 236 NG/ML (26-388); TRANSFERRIN IRON PROFILE 260 MG/DL (200-360)
--- NOTE | 2016-03-19 16:31 | EKG ---
Date Performed: 03/18/2016 Time Performed: 18:56:12 PTAGE: 51 years EKG: Sinus rhythm Prolonged QT interval Inferior and anterior T wave changes are nonspecific Low QRS voltages in limb leads Borderline ECG NO PREVIOUS TRACING DOCTOR: Swapnil Gutierrez Interpretating Date/Time 03/19/2016 16:29:27
[2016-03-20] VITALS: BP 121/76; PULSE 66; RESP 20; TEMP 88; O2SAT 95
[2016-03-20] MEDS: PANTOPRAZOLE INJ 80 MG in SODIUM CHLORIDE 0.9% INJ 100 ML IV SCH ×2 (05:40→15:25)
[2016-03-20] MEDS: LEVOTHYROXINE SODIUM 50 MCG TAB PO SCH (05:40)
[2016-03-20 05:42] LABS: BICARBONATE 27.4 MEQ/L (21.0-32.0); POTASSIUM 3.6 MEQ/L (3.5-5.1)
[2016-03-20 06:46] LABS: AUTOMATED NEUTROPHIL # 4.3 TH/MM3 (1.8-7.7); BASOPHIL % 0.6 % (0.0-2.0); EOSINOPHIL % 0.7 % (0.0-4.0); HEMATOCRIT 29.3 % (39.0-51.0); HEMO FLAGS DIFF FINAL; LYMPH % 10.3 % (9.0-44.0); LYMPHOCYTE # 0.5 TH/MM3 (1.0-4.8); MEAN CELL VOLUME 91.3 FL (80.0-100.0); MEAN CORPUSCULAR HEMOGLOBIN 31.2 PG (27.0-34.0); MEAN CORPUSCULAR HGB CONC 34.2 % (32.0-36.0); MONO % 4.9 % (0.0-8.0); NEUT % 83.5 % (16.0-70.0); PLATELET COUNT 194 TH/MM3 (150-450); RED CELL DISTRIBUTION WIDTH 17.7 % (11.6-17.2); WHITE BLOOD COUNT 5.1 TH/MM3 (4.0-11.0)
[2016-03-20] MEDS: SODIUM CHLORIDE 0.9% FLUSH 5 ML FLUSH FLUSH SCH (07:56)
[2016-03-20] MEDS: SODIUM CHLOR 0.9% 1000 ML INJ 1,000 ML IV SCH ×2 (07:56→15:25)
[2016-03-20 08:00] VITALS: BP 99/68; PULSE 57; PULSE 64; RESP 18; TEMP 97; O2SAT 95
[2016-03-20] MEDS ORDERED: DO NOT ADM ANY ANTICOAGULANT DRUGS XX PRN (10:10)
[2016-03-20] MEDS ORDERED: PROPOFOL 200 MG/20 ML AMP IV ONE (10:20)
--- NOTE | 2016-03-20 11:02 | HHI.PR ---
Subjective Remarks H/H stable. Patient says he feels much better. Still tired. No sob, chest pain . No n/v/d/c. Had a normal bowel with normal color in the morning. No over bleeding. No rash/echymoses. Objective Vitals Vital Signs Date Time Temp Pulse Resp B/P Pulse Ox O2 Delivery O2 Flow Rate FiO2 03/20/16 10:45 60 13 111/77 99 Room Air 03/20/16 10:30 62 12 116/73 100 Nasal Cannula 2 03/20/16 10:15 60 14 112/64 99 Nasal Cannula 2 03/20/16 10:08 97.7 84 16 141/117 90 Nasal Cannula 4 03/20/16 08:00 97.0 64 18 99/68 95 03/20/16 00:00 88.0 66 20 121/76 95 03/19/16 21:12 96 21 03/19/16 20:00 97.6 68 18 118/73 96 03/19/16 12:36 54 16 109/69 96 03/19/16 12:31 65 16 106/69 97 03/19/16 12:26 98.0 66 16 105/68 96 03/19/16 11:30 96.9 56 18 115/73 96 I/O 03/19/16 03/19/16 03/19/16 03/20/16 03/20/16 03/20/16 07:00 15:00 23:00 07:00 15:00 23:00 Intake Total 250 ml 400 ml 240 ml 880 ml 500 ml Output Total 1200 ml 500 ml 400 ml Balance -950 ml -100 ml -160 ml 880 ml 500 ml Intake Oral 240 ml IV Total 400 ml 880 ml Packed Cells 250 ml Other 500 ml Output Urine Total 1200 ml 500 ml 400 ml # Voids 3 # Bowel Movements 0 Result Diagram: 03/20/1642103/20/16421 Imaging Last Impressions Chest X-Ray 03/18/161825 Signed Impressions: Service Date/Time: February 18:47 - CONCLUSION: No acute disease. Toby García MD Abdomen/Pelvis CT 03/18/161825 Signed Impressions: Service Date/Time: February 19:37 - CONCLUSION: Thickwalled gallbladder containing numerous stones. Otherwise unremarkable CT appearance of the abdomen and pelvis. Toby García MD Objective Remarks GENERAL: Well-developed well-nourished. In no acute distress. SKIN: Warm and dry. No lesions noted. HEENT: Normocephalic. Pupils equal and round. Mucous membranes pink and moist. CARDIOVASCULAR: Regular rate and rhythm. No murmur appreciated. RESPIRATORY: No accessory muscle use. Clear to auscultation. Breath sounds equal bilaterally. GASTROINTESTINAL: Abdomen soft, non-tender, nondistended. Bowel sounds x4. MUSCULOSKELETAL: No obvious deformities. No clubbing or cyanosis. No edema. NEUROLOGICAL: Awake and alert. No focal neurological deficits. Moves upper and lower extremities spontaneously. Normal speech. PSYCHIATRIC: Appropriate mood and affect; insight and judgment normal. A/P Problem List: (1) Anemia ICD Code: D64.9 Status: Acute (2) GI bleed ICD Code: K92.2 Status: Acute (3) Hypothyroidism ICD Code: E03.9 Status: Acute (4) Transaminitis ICD Code: R74.0 Status: Acute Assessment and Plan Mr. Jordan is a 51 year-old male who denies any significant past medical history and presented to the emergency room with complaints of generalized malaise, fatigue, weakness and dark loose stool accompanied by shortness of breath. ?GI bleed Poss Acute blood loss anemia Stool positive for occult blood in the ER. H&H 5.9 and 18.0 respectively, RBCs 1.83, s/p 3u PRBCs. EGD performed, showed gastritis. - Gastroenterology on board, planning for colonoscopy - Protonix - Monitor CBC - Transfuse to maintain Hgb > 7 - Continuous cardiac telemetry - H/H stable. - Consult hem/onc for further evaluation as panendoscopy doesn't show a reason for GIB. - Might need capsule endoscopy as OP. GI cleared pt for DC. Severe hypothyroidism TSH- greater than 100.000, Free T4- 0.17, Free T3- 17 - Started on Synthroid 50 mcg p.o. qday - Recheck TFTs in 6 - 8 weeks. Will need lab testing as an outpatient to achieve adequate dosing Acute kidney injury Creatinine 1.5 on admission, no previous labs are comparisons. Improving - IVF - Recheck BMP in a.m. and follow trends in renal indices Transaminitis Elevated AST and ALT - GI consulted as above, workup in progress DVT prophylaxis - SCDs - Chemoprophylaxis contraindicated due to GI bleed and severe anemia Discharge Planning Disposition pending clinical course Radha Storm MD Mar 20, 2016 11:02
[2016-03-20 12:00] VITALS: BP 109/77; PULSE 53; RESP 18; TEMP 96.5; O2SAT 97
[2016-03-20 13:57] LABS: INDIRECT BILIRUBIN 1.3 MG/DL (0.0-0.8); TOTAL BILIRUBIN ADULT 1.6 MG/DL (0.2-1.0)
--- NOTE | 2016-03-20 15:28 | MB ---
cc: PRESTON DELEON M.D., ZAFAR, MD DATE OF CONSULTATION 03/20/16 HEMATOLOGY/ONCOLOGY CONSULTATION NOTE PRIMARY CARE PHYSICIAN The patient has none. REASON FOR CONSULTATION Severe normocytic anemia. CHIEF COMPLAINT The patient reports having had a 6-month history of progressive fatigue, more pronounced over the past 4 weeks. The patient reports having had at least one episode of dark stools earlier this week. HISTORY OF PRESENT ILLNESS Mr. 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 Mr. Jordan is a nome of [facility]. He now lives in the [facility] with his . Mr. Jordan reports being in his usual excellent state of health up until about 7 months ago, he had up until then been able to lift weights, play competitive ice hockey and perform all activities related to daily living and work without any impairment. He reports having noticed more fatigued over the past 6 months. He tells me he was able to continue on with his activities of daily living but towards the evenings he would get more tired and usually go to bed early. Additionally, over the past 2 months he has noticed increased fatigue and lightheadedness when he played ice hockey and because of the fatigue he just began to avoid going. He decided to come into the emergency department at [facility] on 03/18/2016 because his symptoms had become unmanageable. Initial blood work performed 03/18/2016 revealed a hemoglobin of 5.9 gm/dl associated with a hematocrit of 18% and an MCV of 98.5. He did not have evidence of leukopenia or thrombocytopenia or other abnormalities. The patient was transfused 3 units packed red blood cells on the night of 03/18/2016. He did not undergo an anemia workup, i.e., serum iron studies until after he had received all 3 units of red cells. Additionally, no stool for occult blood testing was performed. He has been evaluated by gastroenterology and thus far has undergone an EGD which was performed on 03/19/2016. The EGD revealed findings of gastritis in the antrum, polyps in the distal esophagus and a hiatal hernia. Colonoscopy was performed on 03/20/2016 and this revealed small polyps in the colon which were removed and sent for pathology. One important finding that was revealed during this hospitalization was a TSH which was immeasurably high at greater than 100, the patient's T3 and free T4 levels were also noted to be very low. He is noted to be an mild renal insufficiency and also has abnormal liver function tests. He denies any other pertinent history, specifically that of jonnathan hematochezia, jonnathan melena or other overt bleeding. PAST MEDICAL HISTORY The patient denies having had any previous medical diagnoses and specifically denies being on any medications. PAST SURGICAL HISTORY Surgery for an ankle fracture and hand fracture. FAMILY HISTORY Mom is alive and is healthy. Father of metastatic pancreas cancer at the age of 69. Brother with hypertension. ALLERGIES No known drug allergies. SOCIAL HISTORY The patient lives at home with his . He is a never smoker, he reports drinking six to seven beers a week. 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 He is originally from [facility]. He has no children of his own. CURRENT INPATIENT MEDICATIONS 1. Levothyroxine 50 micrograms orally daily. 2. Zofran 4 milligrams IV q. 6 hours as needed for nausea and vomiting. 3. Pantoprazole infusion. REVIEW OF SYSTEMS A 13-point review of systems are obtained, the following are the pertinent positives and negatives: CONSTITUTIONAL: The patient denies weight loss, reports good appetite, denies night sweats or fevers. HEENT: Denies headaches, blurry vision, difficulty swallowing or soreness in the throat. He denies nosebleeds. RESPIRATORY: Denies cough, hemoptysis, difficulty breathing or pleuritic chest pain. CARDIOVASCULAR: Denies angina-like chest pain, PND, orthopnea, lower extremity swelling. GI: Denies nausea, vomiting, diarrhea, hematochezia, melena, decreased appetite, abdominal swelling, epigastric pain or diarrhea. He does report having had one episode of dark stools. UG: No complaints of dysuria, hematuria, urinary incontinence. HOT MILL TIN ROLLER: Denies any focal sensory or motor deficits. SKIN: No complaints of rashes, lumps or bumps. PHYSICAL EXAMINATION VITAL SIGNS: Temperature 96.5 degrees Fahrenheit, heart rate 53 beats a minute, respiratory rate 18, blood pressure 109/77, O2 sats were 97% on room air. GENERAL APPEARANCE: Mr. Jordan is a middle-aged male, he is sitting up in bed. He appears to be no acute distress. He appears to be somewhat pale. His is at bedside. HEENT: Head is atraumatic, normocephalic, conjunctive are mildly pale. Sclerae are anicteric, EOMI, PERRLA, oral exam no pharyngeal erythema. Neck exam no palpable cervical or supraclavicular lymphadenopathy. RESPIRATORY EXAM: Good air movement bilaterally, no added breath sounds. CARDIOVASCULAR: Regular rate and rhythm, S1-S2. No obvious murmurs, rubs or gallops. ABDOMINAL EXAM: Thin belly, soft, nontender, nondistended. No palpable organ enlargement. EXTREMITIES: No pretibial edema. No calf tenderness. HOT MILL TIN ROLLER: No focal, sensory or motor deficits. HEME/LYMPH: No palpable cervical, supraclavicular or axillary lymphadenopathy. No inguinal lymphadenopathy. LABORATORY FINDINGS Blood work dated 03/19/2016: Sodium 136, potassium 3.6, chloride 101, bicarbonate 27, BUN 10, creatinine 1.5, EGFR 49 ml else per minute, random glucose 82, calcium 8.5, serum iron level 85, TIBC 364, percent iron saturation 23.4, ferritin level 236. Total bilirubin 1.4. AST 119, ALT 91, alkaline phosphatase 38, albumin 3.6. TSH greater than 100. Serum IgA level pending, celiac disease antibodies pending, hepatitis panel pending. IMAGING STUDIES CT scan of the abdomen, pelvis dated 03/18/2016: 1. Thick walled gallbladder containing numerous stones. Otherwise unremarkable CT appearance of the abdomen and pelvis. ASSESSMENT Mr. Jordan is a 51-year-old male who presents to the hospital with a history of progressive fatigue, weakness and exertional dyspnea. He was noted at presentation to have a hemoglobin of 5.6 gm/dl associated with a hematocrit of approximately 18%. MCV was noted to be upper limits of normal at 98. He was admitted to the hospital and transfused multiple units of packed red blood cells (total of three). Serum iron studies were only drawn after all 3 units of packed red blood cells were transfused and therefore are difficult to interpret given the confounding effect of the transfusion. Additionally, no stool samples were submitted for occult blood testing. The patient has undergone a GI workup including CT scan of the abdomen, pelvis which revealed unremarkable findings other than multiple small gallstones, the patient also underwent EGD and colonoscopy which revealed no obvious source of bleeding though the patient was noted to have gastric and I believe duodenal polyps as well as some colonic polyps. Pathology is pending. The hematology service has been consulted for further workup and an evaluation. The patient's peripheral smear from the blood drawn on 03/20/2016 was reviewed; the morphology of the RBCs were difficult to interpret as the patient had of course been transfused 3 units of red cells. His nome cells could be appreciated as there was a significant moderate amount of polychromasia indicating a bone marrow response. Some teardrop cells as well as elongated cigar shaped cells were appreciated as well indicating an iron deficiency. There were no dysplastic or dysmorphic findings of the red cells or of the platelets to indicate a primary bone marrow disorder; likewise there was no evidence of nucleated red cells or basophilic stippling of the red blood cells. The workup thus far has however revealed a severe hypothyroidism and in addition to this he is noted to have renal insufficiency, the etiology of which is not known. RECOMMENDATIONS Anemia workup: I have requested the patient be initiated on empiric oral iron replacement therapy. Additionally, serum protein electrophoresis, serum EPO levels and folic acid plus vitamin B12 levels have been ordered. The patient has been initiated on thyroid replacement therapy for management of hypothyroidism which in itself when severe can result in a normocytic anemia. The patient should continue empiric proton pump inhibitor therapy as we have not fully ruled out a GI source of bleeding. He will be scheduled as an outpatient for a capsule endoscopy. I would like to meet with the patient at my [place] office in the upcoming weeks to discuss the results of the blood work drawn today. MD NEGRITA Basilio/RICARDO /2:36 PM /2:56 PM
[2016-03-20 16:00] VITALS: BP 101/70; PULSE 60; RESP 18; TEMP 96.1; O2SAT 95
[2016-03-20] MEDS ORDERED: PANT40TA3 PO (16:23)
[2016-03-20] MEDS ORDERED: LEVO.05 PO (16:23)
[2016-03-20] MEDS ORDERED: FERR325T PO (16:23)
[2016-03-22 13:09] LABS: ALBUMIN SPE 3.84 GM/DL (3.50-5.00); ALPHA 1 GLOBULIN 0.14 GM/DL (0.11-0.29); ALPHA 2 GLOBULIN 0.68 GM/DL (0.22-1.00); BETA GLOBULINS (SPE) 0.55 GM/DL (0.53-1.03)
[2016-03-22 13:10] LABS: TOTAL PROTEIN SPE 5.9 GM/DL (6.0-7.6)
[2016-03-22 14:28] LABS: ANA SCREEN NEG (NEG)
[2016-03-25 03:54] LABS: IGA SERUM 82 mg/dL (81-463); TISSUE TRANSGLUTAMINASE AB IGG ND U/mL (())
[2016-03-25 13:52] LABS: ENDOMYSIAL AB TITER ND (<1:5); TISSUE TRANSGLUTAMINASE AB LESS THAN 1 U/mL (())
[2016-03-27 23:58] LABS: MITOCHONDRIAL ABS LESS THAN 20.0 U (())
== END 2016-03-20 17:43 | disposition home or self-care (01) | DRG 378 ==
LOC: PHED 16:57 → PHEDA 20:21 → NEPGCP 03-19 00:12 → N07A 03-19 18:55
PROVIDERS: ADMIT Hospitalist; ATTEND Hospitalist
PROC: 30233N1 Transfusion of Nonautologous Red Blood Cells into Peripheral Vein, Percutaneous Approach (ICD-10-PCS; principal; 2016-03-16)
PROC: 0DB98ZX Excision of Duodenum, Via Natural or Artificial Opening Endoscopic, Diagnostic (ICD-10-PCS; 2016-03-19)
PROC: 0DB68ZX Excision of Stomach, Via Natural or Artificial Opening Endoscopic, Diagnostic (ICD-10-PCS; 2016-03-19)
PROC: 0DB38ZX Excision of Lower Esophagus, Via Natural or Artificial Opening Endoscopic, Diagnostic (ICD-10-PCS; 2016-03-19)
PROC: 0DB28ZX Excision of Middle Esophagus, Via Natural or Artificial Opening Endoscopic, Diagnostic (ICD-10-PCS; 2016-03-19)
PROC: 0DBM8ZX Excision of Descending Colon, Via Natural or Artificial Opening Endoscopic, Diagnostic (ICD-10-PCS; 2016-03-20)
DX: K92.2 Gastrointestinal hemorrhage, unspecified (principal); N17.9 Acute kidney failure, unspecified; D62 Acute posthemorrhagic anemia; E03.9 Hypothyroidism, unspecified; K63.5 Polyp of colon; R74.0 Nonspecific elevation of levels of transaminase and lactic acid dehydrogenase [LDH]; K29.70 Gastritis, unspecified, without bleeding; K44.9 Diaphragmatic hernia without obstruction or gangrene; D12.4 Benign neoplasm of descending colon; K64.8 Other hemorrhoids; K22.9 Disease of esophagus, unspecified
CPT/HCPCS: 36430; 71010; 74177; 80048; 80053; 80074; 80076; 81001; 82103; 82105; 82390; 82607; 82668; 82728; 82746; 82784; 83010; 83516; 83520; 83540; 83550; 83615; 84165; 84439; 84443; 84480; 85025; 85610; 85730; 86038; 86256; 86850; 86900; 86901; 86920; 88305; 88312; 93005; 96361; 96374; 96375; C9113; J1940; J2405; J7030; P9016; Q9967